=== PATIENT | male | born 1995 | race Caucasian/White ===

== ENCOUNTER 2019-03-27 18:08 | Emergency (ER) | payer MEDICAID, SELFPAY ==
[~2019-03-27 18:08] MED LIST: Sodium Chloride Irrig Solution 250 ML BOT ONE
[2019-03-27] MEDS ORDERED: Bacitracin Zinc 1 Packet ONE (18:41)
[2019-03-27] MEDS ORDERED: Clindamycin 150 MG CAP ONE (18:41)
== END 2019-03-27 19:20 | disposition home or self-care (01) ==
LOC: MADERS 18:08
DX: L02.413 Cutaneous abscess of right upper limb (principal); L03.113 Cellulitis of right upper limb; F17.220 Nicotine dependence, chewing tobacco, uncomplicated
CPT/HCPCS: 10061